=== PATIENT | female | born 1985 ===

== ENCOUNTER 2017-10-05 09:54 | Emergency (ER) | payer OTHER ==
[2017-10-05] MEDS ORDERED: NS 0.9% 1000 ML* 2,000 ML IV ONE (10:42)
[2017-10-05] MEDS ORDERED: Metoclopramide IV* 5 MG/ML 2 ML VIAL IV SLOW PU ONE (10:43)
[2017-10-05 11:06] LABS: Hematocrit 38 % (35-47); Hemoglobin 13.2 g/dl (12.0-16.0); Mean Corpuscular HGB Conc 35 g/dl (31-36); Mean Corpuscular Hemoglobin 29 pg (27-31); Mean Corpuscular Volume 84 fL (80-97); Mean Platelet Volume 8 um3 (7.4-10.4); Red Cell Distribution Width 13 % (10.5-15); White Blood Count 7.7 10^3/ul (3.5-10.8)
[2017-10-05 11:21] LABS: Calcium 9.4 mg/dL (8.6-10.3); EGFR African American 135.2 (>60); EGFR Non-African American 105.2 (>60); Globulin 2.9 g/dL (2-4); Potassium 3.9 mmol/L (3.5-5.0); Total Bilirubin 0.6 mg/dL (0.2-1.0); Total Protein 6.9 g/dL (6.4-8.9)
--- NOTE | 2017-10-05 11:55 | RAD ---
HISTORY: Cramping, , gestational age by dates of 10 weeks and 1 day COMPARISONS: None relevant TECHNIQUE: Multiple transverse and longitudinal ultrasound images were obtained of the pelvis using grayscale, color Doppler, spectral Doppler imaging and M-Mode Doppler imaging using the endovaginal transducer. FINDINGS: UTERUS: The uterus is normal in shape, size, contour, and echotexture. GESTATION: There is a single live intrauterine gestation. The crown-rump length measures 3.6 cm for a gestational age of 10 weeks, 4 days. The DUY is April 29, 2011. cardiac motion is detected at a rate of 160 beats per minute. Gross movement is identified. anatomy cannot be assessed secondary to early dates. The amniotic fluid is qualitatively normal. There are no retroplacental fluid collections. CUL-DE-SAC: There is no free fluid within the cul-de-sac. RIGHT OVARY: The right ovary measures 2.4 x 1.6 x 1.7 cm. There is a minimally comminuted right ovarian cyst measuring 1.7 cm. Normal arterial and venous waveforms are identifiable within the ovary on spectral Doppler imaging. LEFT OVARY: The left ovary measures 1.7 x 1.1 x 1.6 cm. Normal arterial and venous waveforms are identifiable within the ovary on spectral Doppler imaging. BLADDER: The bladder is not well visualized. OTHER: The cervix measures 3.4 cm in length IMPRESSION: SINGLE LIVE INTRAUTERINE GESTATION AT 10 WEEKS, 4 DAYS BY CROWN-RUMP LENGTH
[2017-10-05 12:19] LABS: BUN/Creatinine Ratio 13.6 (8-20)
[2017-10-05 13:16] LABS: Urine Bacteria Absent (Absent); Urine Bilirubin Negative (Negative); Urine Glucose Negative (Negative); Urine Nitrite Negative (Negative)
[2017-10-05 14:07] VITALS: BP 118/65
--- NOTE | 2017-10-05 16:13 | ED ---
Asia Perez Nilda, scribed for Leonidas Delgado MD on 10/05/17 at 1049 . GI/ HPI - HPI Summary HPI Summary: This patient is a 32 year old F presenting to [facility] accompanied by mother with a chief complaint of vomiting for the past 2 days. She is 10 weeks . During the past 2 weeks, the patient had been nauseous and was given Zofran by her INTAKE NURSE. Two days ago, patient began vomiting again and her INTAKE NURSE recommended she come to the ED. The patient rates the pain 4/10 in severity. Symptoms aggravated and alleviated by nothing. Patient reports abd cramping, decreased appetite, and dehydration. Patient denies diarrhea, BM (last was two weeks ago), and passing flatus (last time was two days ago). - History of Current Complaint Chief Complaint: EDNauseaVomitDiarrh Time Seen by Provider: 10/05/17 10:28 Stated Complaint: 10WKS PREG/VOMITING Hx Obtained From: Patient Onset/Duration: Started Days Ago, Still Present Timing: Constant, Lasting Days - 2 days Current Severity: Mild Pain Intensity: 4 Location of Pain: Diffuse Pain Characteristics: Cramping Associated Signs and Symptoms: Positive: Other: - abd cramping, passing gas ( none since 2 days ago), no BM for two weeks, decreased appetite, and dehydration. Patient denies diarrhea. - Allergy/Home Medications Allergies/Adverse Reactions: Allergies Allergy/AdvReac Type Severity Reaction Status Date / Time No Known Allergies Allergy Verified 10/05/17 09:59 PMH/Surg Hx/FS Hx/Imm Hx Respiratory History: Reports: Hx Asthma, Other Respiratory Problems/Disorders - INFLUENZA B EENT History: Denies: Hx Deafness Infectious Disease History: No Infectious Disease History: Denies: Traveled Outside the [place] in Last 30 Days - Family History Known Family History: Positive: Hypertension, Other - colon cancer - Social History Occupation: Employed Full-time - speech pathologist Alcohol Use: None Hx Substance Use: No Substance Use Type: Reports: None Hx Tobacco Use: No Smoking Status (MU): Never Smoked Tobacco Review of Systems Positive: Other - dehydration Positive: Abdominal Pain - cramping, Vomiting, Nausea, Other - no BM for two weeks, decrease appetite, no flatus for two days . Negative: Diarrhea Positive: other - 10 weeks All Other Systems Reviewed And Are Negative: Yes Physical Exam Triage Information Reviewed: Yes Vital Signs On Initial Exam: Initial Vitals Temp Pulse Resp BP Pulse Ox 97.7 F 79 18 117/74 98 10/05/17 09:56 10/05/17 09:56 10/05/17 09:56 10/05/17 09:56 10/05/17 09:56 Vital Signs Reviewed: Yes Appearance: Positive: Well-Appearing, No Pain Distress Skin: Positive: Warm, Skin Color Reflects Adequate Perfusion Head/Face: Positive: Normal Head/Face Inspection Eyes: Positive: EOMI ENT: Positive: Pharynx normal Respiratory/Lung Sounds: Positive: Clear to Auscultation, Breath Sounds Present Cardiovascular: Positive: RRR. Negative: Murmur Abdomen Description: Positive: Nontender Musculoskeletal: Positive: Strength/ROM Intact Neurological: Positive: Sensory/Motor Intact, Alert, Oriented to Person Place, Time, CN Intact II-III - Franco Coma Scale Best Eye Response: 4 - Spontaneous Best Motor Response: 6 - Obeys Commands Best Verbal Response: 5 - Oriented Diagnostics - Vital Signs Vital Signs Temp Pulse Resp BP Pulse Ox 10/05/17 09:56 97.7 F 79 18 117/74 98 - Laboratory Lab Results: Lab Results 10/05/17 10/05/17 Range/Units 10:45 10:45 WBC 7.7 (3.5-10.8) 10^3/ul RBC 4.50 (4.0-5.4) 10^6/ul Hgb 13.2 (12.0-16.0) g/dl Hct 38 (35-47) % MCV 84 (80-97) fL MCH 29 (27-31) pg MCHC 35 (31-36) g/dl RDW 13 (10.5-15) % Plt Count 214 (150-450) 10^3/ul MPV 8 (7.4-10.4) um3 Neut % (Auto) 73.5 (38-83) % Lymph % (Auto) 21.2 L (25-47) % Appling % (Auto) 4.7 (1-9) % Eos % (Auto) 0.2 (0-6) % Baso % (Auto) 0.4 (0-2) % Absolute Neuts (auto) 5.6 (1.5-7.7) 10^3/ul Absolute Lymphs (auto) 1.6 (1.0-4.8) 10^3/ul Absolute Monos (auto) 0.4 (0-0.8) 10^3/ul Absolute Eos (auto) 0 (0-0.6) 10^3/ul Absolute Basos (auto) 0 (0-0.2) 10^3/ul Absolute Nucleated RBC 0 10^3/ul Nucleated RBC % 0 Blood Type B Positive Antibody Screen Pending Result Diagrams: 10/05/17 10:45 10/05/17 10:45 Lab Statement: Any lab studies that have been ordered have been reviewed, and results considered in the medical decision making process. - Additional Comments Diagnostic Additional Comments: US reveals single live intrauterine gestation at 10 weeks, 4 days by crown -rump length. ED physician has reviewed this radiology report and agrees. Re-Evaluation - Re-Evaluation First Eval Re-Evaluation Time: 12:42 Change: Improved Comment: the patient feels much better and would like to go home now. Second Eval Re-Evaluation Time: 13:45 Change: Improved Comment: Pt feels better and is drinking miko leonarda. GIGU Course/Dx - Course Course Of Treatment: This patient is a 32 year old F presenting to [facility] accompanied by mother with a chief complaint of vomiting for the past 2 days. She is 10 weeks . Past 2 weeks patient had been nauseous and was given Zofran by her INTAKE NURSE. Two days ago, patient began vomiting again and her INTAKE NURSE recommended she come to the ED. The patient rates the pain 4/10 in severity. Symptoms aggravated and alleviated by nothing. Patient reports abd cramping, decreased appetite, and dehydration. Patient denies diarrhea, BM (last was two weeks ago), and passing flatus (last time was two days ago). US, per radiologist, reveals single live intrauterine gestation at 10 weeks, 4 days by crown-rump length. UA reveals: Urine ketone 2+, Urine Leukocyte esterase 1+, Urine RBC 1+. Pt is stable and will be D/C with Dx of nausea, vomiting, , and UTI. She was prescribed Macrobid. Patient understands and is agreeable with this plan. - Diagnoses Provider Diagnoses: UTI (urinary tract infection), Hyperemesis Discharge - Discharge Plan Condition: Good Disposition: HOME Prescriptions: Nitrofurantoin Monohyd Macro [Macrobid] 100 mg PO BID #14 cap Patient Education Materials: (ED), Urinary Tract Infection in Women ( ED), Acute Nausea and Vomiting (ED) Referrals: Nick Cardenas, UTILITY TRACTOR OPERATOR [Primary Care Provider] - 2 Days The documentation as recorded by the Asia hung Nilda accurately reflects the service I personally performed and the decisions made by , Leonidas Delgado MD.
== END 2017-10-05 14:06 | disposition home or self-care (01) ==
LOC: ED 09:54
DX: N39.0 Urinary tract infection, site not specified (principal); R10.9 Unspecified abdominal pain; R11.2 Nausea with vomiting, unspecified
CPT/HCPCS: 36415; 76801; 80053; 81003; 81015; 83605; 85025; 86850; 86900; 86901; 87086; 96374; 99282; J2765